=== PATIENT | female | born 1965 | race Caucasian/White ===

== ENCOUNTER 2021-07-27 15:24 | Outpatient (CLI) | payer BC | END 2021-07-27 15:25 | disposition home or self-care (01) | LOC: CSHULT 15:24 | PROVIDERS: ATTEND Family Medicine | DX: R94.6 Abnormal results of thyroid function studies (principal); E04.2 Nontoxic multinodular goiter | CPT/HCPCS: 76536 ==

== ENCOUNTER 2022-01-25 15:25 | Outpatient (CLI) | payer BC | END 2022-01-25 15:26 | disposition home or self-care (01) | LOC: CSHMAMMO 15:25 | PROVIDERS: ATTEND Family Medicine | DX: Z12.31 Encounter for screening mammogram for malignant neoplasm of breast (principal) | CPT/HCPCS: 77063; 77067 ==

== ENCOUNTER 2024-03-30 13:44 | Outpatient (CLI) | payer BC | END 2024-03-30 13:45 | disposition home or self-care (01) | LOC: CSHMAMMO 13:44 | PROVIDERS: ATTEND Family Medicine | DX: N63.20 Unspecified lump in the left breast, unspecified quadrant (principal) | CPT/HCPCS: 77066; G0279 ==